=== PATIENT | female | born 1975 | race Caucasian/White ===

== ENCOUNTER 2016-11-16 21:53 | Emergency (ER) | payer SELFPAY ==
[2016-11-16 22:03] VITALS: O2SAT 100
[2016-11-16] MEDS ORDERED: Sodium Chloride 0.9% 1,000 ML IV STA (22:39)
--- NOTE | 2016-11-16 22:41 | C.PDOC ---
History Of Present Illness 41 y/o F c no PMHx p/w headache, cough with green sputum, NBNB vomiting x 5 for a week. Patient states headache is typical of her headaches. Denies fever, dyspnea, abdominal pain, diarrhea, dysuria. Time Seen by Provider: 11/16/16 22:32 Chief Complaint (Nursing): Headache History Per: Patient History/Exam Limitations: no limitations Onset/Duration Of Symptoms: Days (A week) Current Symptoms Are (Timing): Still Present Severity: Mild Preceeding Symptoms: None Recent travel outside of the [place]: No Additional History Per: Patient Past Medical History Reviewed: Historical Data, Nursing Documentation, Vital Signs Vital Signs: Last Vital Signs Temp 97.6 F 11/16/16 23:31 Pulse 78 11/16/16 23:31 Resp 19 11/16/16 23:31 BP 168/81 H 11/16/16 23:31 Pulse Ox 100 11/17/16 00:01 - Medical History PMH: Anxiety, HTN (only when stressed) Family History: States: Unknown Family Hx - Social History Hx Tobacco Use: No Hx Alcohol Use: Yes Hx Substance Use: No - Immunization History Hx Tetanus Toxoid Vaccination: No Hx Influenza Vaccination: No Hx Pneumococcal Vaccination: No Review Of Systems Except As Marked, All Systems Reviewed And Found Negative. Constitutional: Negative for: Fever Cardiovascular: Negative for: Chest Pain Respiratory: Positive for: Cough (W/ green sputum) Gastrointestinal: Positive for: Vomiting (NBNB, x5) Neurological: Positive for: Headache Physical Exam - Physical Exam Additional Physical Exam Comments: Constitutional: No acute distress. Head: Normocephalic. Atraumatic. Eyes: PERRL. ENT: Moist mucous membranes. Throat: No erythema. No exudates. Neck: Supple. Normal ROM. No midline cervical tenderness Cardiovascular: Regular rate. Radial pulse 2+ bilaterally. Chest: No tenderness. Respiratory: Clear to auscultation bilaterally. GI: Soft. Nontender. Nondistended. No guarding. No rebound. Back: No CVA tenderness. Musculoskeletal: No tenderness or swelling of extremities. Skin: No rash. Neurologic: Alert, no focal deficit. Normal speech. Normal cognition ED Course And Treatment - Laboratory Results Result Diagrams: 11/16/16 23:01 11/16/16 23:01 O2 Sat by Pulse Oximetry: 100 (RA) Pulse Ox Interpretation: Normal Medical Decision Making Medical Decision Making: Plans: * CXR * Toradol * Zofran * IV fluids * Serology * UA * Blood work up CXR no infiltrate or consolidation. Patient feels much better and appears well. Advised ibuprofen, PO fluids, f/u PMD, instructed to return to ED for worsening pain, fever, vomiting, dyspnea, or any other problem. Disposition - Disposition Referrals: [facility] [Outside] Disposition: HOME/ ROUTINE Disposition Time: 23:56 Condition: STABLE Prescriptions: Ibuprofen [Motrin] 1 tab PO Q6 #30 tab Ondansetron ODT [Zofran ODT] 4 mg PO Q8 #12 odt Instructions: Viral Syndrome (ED) Forms: [facility] (Lithuanian) - Clinical Impression Clinical Impression: Flu-like symptoms - Scribe Statement The provider has reviewed the documentation as recorded by the Scribe Leonardo callahan All medical record entries made by the Scribe were at my direction and personally dictated by me. I have reviewed the chart and agree that the record accurately reflects my personal performance of the history, physical exam, medical decision making, and the department course for this patient. I have also personally directed, reviewed, and agree with the discharge instructions and disposition.
[2016-11-16] MEDS ORDERED: Sodium Chloride 0.9% 1,000 ML ONE (22:50)
[2016-11-16 23:06] LABS: BASO % 0.4 % (0.0-2.0); EOS # 0.9 K/uL (0.0-0.7); EOS % 7.7 % (0.0-4.0); HEMATOCRIT 42.6 % (34.0-47.0); LYMPH # 1.6 K/uL (1.0-4.3); LYMPH % 13.3 % (20.0-40.0); MEAN CELL VOLUME 82.4 fL (81.0-99.0); MEAN CORPUSCULAR HEMOGLOBIN 27.2 pg (27.0-31.0); MEAN PLATELET VOLUME 6.8 fL (7.2-11.7); MONO # 0.6 K/uL (0.0-0.8); MONO % 4.6 % (0.0-10.0); NRBC % 0.2 % (0.0-2.0); WHITE BLOOD COUNT 12.2 K/uL (4.8-10.8)
[2016-11-16 23:09] LABS: RBC URINE 2 /hpf (0-3); URINE BACTERIA RARE (<OCC); URINE BILIRUBIN NEGATIVE (NEGATIVE); URINE COLOR Straw (YELLOW); URINE GLUCOSE (UA) NORMAL (Normal); URINE KETONE NEGATIVE (NEGATIVE); URINE LEUKOCYTE ESTERASE NEG Leu/uL (Negative); URINE PROTEIN NEGATIVE (NEGATIVE); URINE UROBILINOGEN NORMAL mg/dL (0.2-1.0); WBC URINE 1 /hpf (0-5)
[2016-11-16 23:11] LABS: URINE BLOOD TRACE (NEGATIVE)
[2016-11-16 23:13] LABS: CHLORIDE 99 mmol/L (98-107)
[2016-11-16 23:14] LABS: POTASSIUM 3.8 mmol/L (3.6-5.2); SODIUM 136 mmol/L (132-148)
[2016-11-16 23:16] LABS: GFR AFRICAN-AMERICAN > 60
[2016-11-16 23:17] LABS: ALB/GLOB RATIO 1.3 (1.0-2.1); ALKALINE PHOSPHATASE 106 U/L (38-126); ALT/SGPT 31 U/L (9-52); AST/SGOT 29 U/L (14-36); BILIRUBIN,TOTAL 0.6 mg/dL (0.2-1.3); BLOOD UREA NITROGEN 8 mg/dL (7-17); CARBON DIOXIDE 24 mmol/L (22-30); GLUCOSE,RANDOM 113 mg/dL (65-105)
[2016-11-16 23:33] VITALS: BP 168/81; PULSE 78; RESP 19; TEMP 97.6
--- NOTE | 2016-11-17 08:10 | RAD ---
HISTORY: cough COMPARISON: No prior. TECHNIQUE: Chest PA and lateral FINDINGS: LUNGS: No acute infiltrate identified bilaterally. There is a small nodular density in the periphery of the left upper lung zone laterally which could be due somewhat larger in size than expected for a vessel on-end at that location. Follow-up chest is advised for this finding. PLEURA: No significant pleural effusion identified. No pneumothorax apparent. CARDIOVASCULAR: Normal. OSSEOUS STRUCTURES: No significant abnormalities. VISUALIZED UPPER ABDOMEN: Normal. OTHER FINDINGS: None. IMPRESSION: Tiny nodule question in the left upper lung zone laterally. Follow-up chest CT advised for additional characterization. Remainder of the examination is unremarkable.
== END 2016-11-17 00:15 | disposition home or self-care (01) ==
LOC: C.ER 21:53
DX: J11.1 Influenza due to unidentified influenza virus with other respiratory manifestations (principal)
CPT/HCPCS: 71020; 80053; 81001; 83690; 84703; 85025; 87804; 96361; 96374; 96375; 99284; J1885; J2405; J7040